=== PATIENT | male | born 1950 | race Caucasian/White ===

== ENCOUNTER 2016-05-24 14:34 | Emergency (ER) | payer MEDICARE ==
[~2016-05-24] VITALS: Ht 167.6 cm; Wt 94.8 kg
[~2016-05-24 14:34] MED LIST: CALC0.25 PO; ENAL20TA PO; ERGO500017 PO; FURO20TA3 PO; FURO80TA3 PO; INSU100V8 SQ; ISON300T4 PO; LOSA25TA5 PO; PYRI50TA5 PO
[2016-05-24 14:43] VITALS: BP 167/85
== END 2016-05-24 15:57 | disposition home or self-care (01) ==
LOC: ED 15:40
DX: Z76.0 Encounter for issue of repeat prescription (principal); I10 Essential (primary) hypertension; E11.9 Type 2 diabetes mellitus without complications
CPT/HCPCS: 99283

== ENCOUNTER 2016-06-06 12:39 | Emergency (ER) | payer MEDICARE, MEDICAID ==
[~2016-06-06] VITALS: Ht 152.4 cm; Wt 93.8 kg
[2016-06-06 13:14] VITALS: BP 145/82
== END 2016-06-06 14:00 | disposition home or self-care (01) ==
LOC: ED 13:42
DX: Z76.0 Encounter for issue of repeat prescription (principal); I10 Essential (primary) hypertension; E11.9 Type 2 diabetes mellitus without complications; N19 Unspecified kidney failure
CPT/HCPCS: 99283